=== PATIENT | male | born 1945 | race Caucasian/White ===

== ENCOUNTER → 2017-01-31 | Outpatient (CLI) | payer MEDICARE, OTHER ==
[~2017-01-31] MED LIST: APRESOLINE25 MG PO; CATAPRES0.1 MG PO; COLACE100 MG PO; COREG 3.1253.125 MG PO; DELTASONE5 MG PO; DOCUSATE SODIU1 EACH PO; HYTRIN UD5 MG PO; MAG-OX-400(241400 MG PO; METAMUCIL PACKE1 PKT PO; NORVASC10 MG PO; PERCOCET 5-3251 EACH PO; PROSCAR5 MG PO; PROTONIX40 MG PO; SENOKOT8.6 MG PO; TYLENOL EXTRA500 MG PO; ZANTAC (NON-FO150 MG PO; ZOFRAN4 MG PO
== END | disposition disaster alternative care site (69) ==
LOC: GRAD 12:17
DX: D86.0 Sarcoidosis of lung (principal)

== ENCOUNTER 2017-02-16 09:54 | Emergency (ER) | payer MEDICARE, OTHER ==
--- NOTE | ~2017-02-16 | ER ---
PATIENT'S NAME: THAO BRANDT [facility] AGE: 71 Y [address] ROOM: [place] [address] LOCATION: ED ADMIT DATE: 02/16/2017 ER/Outpatient Report DISCHARGE DATE: 02/16/2017 FAMILY PHYSICIAN: Domenic Marx MD ATTENDING PHYSICIAN: Nayeli Siegel Time of Arrival: 0954 hours. Time of Evaluation/Seen: 1005 hours. IDENTIFICATION: A 71-year-old male. CHIEF COMPLAINT: Back pain radiating down his right leg and difficulty walking secondary to pain. HISTORY OF PRESENT ILLNESS: The patient had onset of right back pain on Sunday that is increased in severity. He saw Dr. Marx on Sunday. He is scheduled for a CT scan next week. He has some numbness and tingling in his right lower leg and pain that radiates down his leg. No bowel or bladder problems. He has never had problems like this before. No fall or injury. PAST MEDICAL HISTORY: ALLERGIES: PENICILLIN. CURRENT MEDICATIONS: 1. Amlodipine 10 mg daily. 2. Terazosin 5 mg daily. 3. Clonidine 0.1 mg 3 times a day. 4. Finasteride 5 mg daily. 5. Prednisone 5 mg daily. 6. Carvedilol 3.125 mg b.i.d. 7. Zantac b.i.d. p.r.n. 8. Metamucil b.i.d. 9. Docusate b.i.d. 10. Sennosides b.i.d. 11. Acetaminophen. MEDICAL PROBLEMS: 1. Hypertension. 2. Sarcoidosis. 3. Acute kidney injury. PATIENT'S NAME: THAO BRANDT [facility] AGE: 71 Y [address] ROOM: [place] [address] LOCATION: ED ADMIT DATE: 02/16/2017 ER/Outpatient Report DISCHARGE DATE: 02/16/2017 FAMILY PHYSICIAN: Domenic Marx MD ATTENDING PHYSICIAN: Nayeli Siegel 4. BPH. 5. Chronic kidney disease. PAST SURGICAL HISTORY: Prior Surgeries: Neck surgery and appendectomy. SOCIAL HISTORY: The patient lives in [place]. He is . Tobacco use, denies. Alcohol use, denies. Drug use, denies. FAMILY HISTORY: No pertinent family history identified. REVIEW OF SYSTEMS: All systems reviewed and negative other than what is noted in the HPI. PHYSICAL EXAMINATION: VITAL SIGNS: Weight 72.6 kg. Blood pressure 169/86, pulse 64, respiratory rate is 20, temperature 95.6, and saturations 97%. GENERAL: A 71-year-old male in mild distress. HEENT: Unremarkable. LUNGS: Clear to auscultation. HEART: Regular rate and rhythm. ABDOMEN: Soft, nondistended, and nontender. SKIN: [place], warm, and dry. No lesions or rashes noted. NEUROLOGIC: The patient is alert and oriented x4. Cranial nerves 2 through 12 grossly intact. Motor strength 5/5 throughout. Sensation is intact to light touch. Equivocal straight leg raise on the left. Negative straight leg raise on the right. LABORATORY DATA: Sodium 144, potassium 4.0, chloride 110, CO2 of 28, BUN 25, and creatinine 1.6 which the patient states is stable for him. Blood sugar 69. Liver enzymes normal. CRP 0.32. Hemoglobin 13.6, hematocrit 41.9, platelets 165,000, and white count 7.7 with a normal differential. Sedimentation rate 10. CT scan of the lumbar spine; L3-L4 severe central canal and severe right foraminal stenosis. Passing an exiting nerve could be impinged, L4-L5 moderate-to- severe canal stenosis. Also potential for neural impingement at this level. IMPRESSION AND PLAN: 1. Acute low back pain with radiculopathy. 2. L4-L5 [id number] central canal stenosis. 3. Severe central canal stenosis and right foraminal stenosis, L3-L4. Back pain handout. Prednisone 20 mg b.i.d. for 2 days, 15 mg b.i.d. for 2 days, 20 mg daily for 2 days, 10 mg daily for 2 days, then back to his usual PATIENT'S NAME: THAO BRANDT [facility] AGE: 71 Y [address] ROOM: [place], [place] [address] LOCATION: ED ADMIT DATE: 02/16/2017 ER/Outpatient Report DISCHARGE DATE: 02/16/2017 FAMILY PHYSICIAN: Domenic Marx MD ATTENDING PHYSICIAN: Nayeli Siegel A dose of 5 mg daily. Tylenol as needed for pain. Initially patient did not want anything for pain here but prior to leaving, he decided he did. We gave him 5 mg of morphine IM with resolution of his pain. [place] 5/325, 1 to 2 p.o. q.4-6 hours p.r.n. pain, dispensed 15 with 0 refills. Follow up with Dr. Marx or Dr. Murray next week. Follow up sooner if any problems or concerns and bowel or bladder problems. The patient and his understand and agree, and all questions have been answered. NAYELI SIEGEL MD CAR/modl /[id number] d: 02/16/172055 t: 02/23/171925, OUTPATIENT REPORT
[~2017-02-16 09:54] MED LIST changes: -PERCOCET 5-3251 EACH PO; -ZANTAC (NON-FO150 MG PO
[2017-02-16 11:04] LABS: BASOPHIL % 0.5 %; EOSINOPHIL # 0.3 K/uL (0.0-0.5); EOSINOPHIL % 3.4 %; HEMATOCRIT 41.9 % (37.0-53.0); HEMOGLOBIN 13.6 g/dL (11.0-16.0); IMMATURE GRANULOCYTE # 0.1 K/uL (0.0-0.3); IMMATURE GRANULOCYTE % 1.2 %; LYMPHOCYTE # 0.8 K/uL (0.8-4.0); MCH 28.9 pg (27.0-34.0); MCHC 32.5 gm/dL (32.0-36.5); MONOCYTE # 0.7 K/uL (0.0-1.0); MONOCYTE % 9.1 %; MPV 10.8 fl (9.4-12.4); NEUTROPHIL # (ANC) 5.8 K/uL (1.4-9.0); NEUTROPHIL % 75.8 %; NRBC % 0 /100WBC (0-0.00); PLATELET COUNT 165 K/uL (150-450); RDW-CV 13.3 % (11.9-14.6); WBC 7.7 K/uL (4.0-11.0)
[2017-02-16 11:05] LABS: ALBUMIN 3.2 gm/dL (3.5-5.0); CALCIUM 8.7 mg/dL (8.5-10.5); CREATININE 1.6 mg/dL (0.6-1.3); TOTAL BILIRUBIN 0.3 mg/dL (0.0-1.5); TOTAL PROTEIN 6.4 g/dL (6.0-8.4)
[2017-02-16 11:06] LABS: RBC 4.71 M/uL (3.50-5.50)
[2017-02-21] MEDS ORDERED: ZANTAC (NON-FO150 MG PO (16:55)
[2017-02-21] MEDS ORDERED: PERCOCET 5-3251 EACH PO (17:02)
== END 2017-02-16 12:44 | disposition disaster alternative care site (69) ==
LOC: GMED 09:54
PROVIDERS: Family Medicine
DX: M48.06 Spinal stenosis, lumbar region (principal); N40.0 Benign prostatic hyperplasia without lower urinary tract symptoms; I12.9 Hypertensive chronic kidney disease with stage 1 through stage 4 chronic kidney disease, or unspecified chronic kidney disease; N18.9 Chronic kidney disease, unspecified; Z79.899 Other long term (current) drug therapy; Z88.0 Allergy status to penicillin
CPT/HCPCS: J2270

== ENCOUNTER → 2017-02-21 | Day surgery (SDC) | payer MEDICARE, OTHER ==
[~2017-02-21] VITALS: Ht 170.2 cm; Wt 73.1 kg
[~2017-02-21] MED LIST changes: +PERCOCET 5-3251 EACH PO; +ZANTAC (NON-FO150 MG PO
--- NOTE | ~2017-02-21 | OR ---
PATIENT'S NAME: THAO BRANDT [facility] AGE: 71 Y [address] ROOM: [place] [address] [place] [facility] [place]: 02/21/2017 OR/Procedure Report DISCHARGE DATE: FAMILY PHYSICIAN: Domenic Marx MD ATTENDING PHYSICIAN: Gama Murray SURGEON: Palomo Bustamante MD CONDUIT WORKER: DATE OF PROCEDURE: 02/21/2017 PROCEDURE PERFORMED: L3-L4 interlaminar epidural steroid injection. INDICATIONS FOR PROCEDURE: The patient has lumbar disk disease with radiculopathy. Canal stenosis, foraminal stenosis, and degenerative disk disease. The risks, benefits, and alternatives were explained to the patient and wished to proceed. PROCEDURE IN DETAIL: The patient was taken to the procedure room, placed in prone position. Fluoroscopy was used to identify the L3-L4 interspace. Back was prepped with Betadine x3. Sterile dressing applied over top. The skin was numbed with 3 mL of 1% lidocaine. Next using fluoroscopic guidance and loss of resistance technique, an 18-gauge Tuohy needle was advanced into position on the right side interlaminar space. Once this was felt to be in position with loss of resistance and fluoroscopic guidance, 1 mL of contrast was injected in AP and lateral views. It showed good epidural spread. No intrathecal uptake. No intravascular uptake. Next, a mixture of 3 mL of 0.25% bupivacaine and 80 mg of Depo-Medrol was injected without complication. Stylette placed. Needle withdrawn. Hemostasis was achieved. COMPLICATIONS: None. ESTIMATED BLOOD LOSS: None. PLAN: The patient was unable to get an MRI due to the MRI machine being down. I would like him to experience about 50% pain relief from this. He could benefit from additional injection with further targeting following an MRI scan. PALOMO BUSTAMANTE MD JJP/modl PATIENT'S NAME: THAO BRANDT [facility] AGE: 71 Y [address] ROOM: [place] [address] [place] [facility] [place]: 02/21/2017 OR/Procedure Report DISCHARGE DATE: FAMILY PHYSICIAN: Domenic Marx MD ATTENDING PHYSICIAN: Gama Murray /[id number] d: 02/27/17 1423 t: 03/15/17 1344, OPERATIVE SUMMARY
== END | disposition disaster alternative care site (69) ==
LOC: GSDC 16:48 → GPOC 17:00
PROC: 3E0R3BZ Introduction of Anesthetic Agent into Spinal Canal, Percutaneous Approach (ICD-10-PCS; principal; 2017-02-21)
PROC: 3E0R33Z Introduction of Anti-inflammatory into Spinal Canal, Percutaneous Approach (ICD-10-PCS; 2017-02-21)
DX: M51.16 Intervertebral disc disorders with radiculopathy, lumbar region (principal); M48.06 Spinal stenosis, lumbar region; I12.9 Hypertensive chronic kidney disease with stage 1 through stage 4 chronic kidney disease, or unspecified chronic kidney disease; N18.9 Chronic kidney disease, unspecified; R26.2 Difficulty in walking, not elsewhere classified; M51.17 Intervertebral disc disorders with radiculopathy, lumbosacral region; Z88.0 Allergy status to penicillin; Z90.49 Acquired absence of other specified parts of digestive tract; Z98.890 Other specified postprocedural states; Z79.52 Long term (current) use of systemic steroids; Z79.899 Other long term (current) drug therapy
CPT/HCPCS: J1040